=== PATIENT | female | born 1955 | race Caucasian/White ===

== ENCOUNTER → 2017-02-02 | Day surgery (SDC) | payer OTHER ==
[~2017-02-02] MED LIST: BUPIVACAINE HCL PF 0.5% 30 ML VIAL ONE; PROPOFOL 200 MG/20 ML AMP IV ONE; RALO60 PO; SYNT88TA PO; TRIAMCINOLONE ACETONIDE 40 MG/ML VIAL I-ARTICULR ONE
--- NOTE | 2017-02-05 20:06 | M6 ---
cc: Theresa GRANGER DATE 02/02/17 is PROCEDURE Fluoroscopically guided injection right cervical facet joints (right C2-3, C3-4, C4-5 and C5-6 facet joints) History and physical was completed and signed. Consent was signed. Procedure site was marked. Medications were listed and reconciled. Pain score was recorded. Allergies were noted. Time out was taken. Fluoroscopy time was recorded where applicable. Sedation was administered or directed by Dr. Granger. The patient was given oxygen. The patient was monitored by a registered nurse. Total procedure time was greater than 15 minutes. IV was started, blood pressure cuff, pulse oximeter and EKG were applied. The patient was placed in the prone position on a Brett table sedated with small amounts of propofol titrated to effect. Vital signs were monitored and remained stable throughout the procedure. The cervical area was prepped with alcohol and 10% Betadine solution and draped with sterile drapes. Fluoroscopy was used to visualize the right cervical facet joints. Separate sterile 3-1/2 inch 25-gauge spinal needles were advanced down to the right C2-3, C3-4, C4-5 and C5-6 facet joints. There was negative aspiration for blood or any other type of fluid. At each location, the patient was given 1 mL of Marcaine 0.5% with 10 mg of Kenalog. Following this, the patient was taken to the recovery room with stable vital signs neurologically intact. She will be evaluated immediately and with followup to determine if she has a subjective decrease in her usual pain and a corresponding objective increase in her functional capabilities. TECHNICAL Any oral MD MICHAEL Mc/ /8:58 AM /7:47 PM
== END | disposition home or self-care (01) ==
LOC: PHSDC 07:00
PROVIDERS: ATTEND Pain Medicine Interventional Pain Medicine
DX: M54.2 Cervicalgia (principal)
CPT/HCPCS: 64490; 64491; 64492; 99152; J3301